=== PATIENT | male | born 1945 | race Caucasian/White ===

== ENCOUNTER 2023-01-06 07:51 | Outpatient (RCR) | payer MEDICARE, BC, SELFPAY ==
--- NOTE | 2023-01-06 08:49 | PT.OPEX ---
[facility] Eval PT [facility] Out[facility] Eval Start: 01/06/23 07:40 Freq: Status: Active Protocol: Document 01/06/23 07:41 KACY (Rec: 01/06/23 08:45 KACY [id number]) E-signed By Manuela [facility] Outpatient Evaluation Insurance Information Recert Due Date 04/07/23 Insurance Name Medicare B,Blue [employer] Medical Diagnosis M17.11 OA of R knee Z96.651 Presence of R artificial knee joint Treating Diagnosis M25.561 R knee pain M25.661 Stiffness of R knee Referring MD Lewis Subjective Subjective Pt presents pre-op only for RTKA on 01/20/[address] Lewis. Pt reports that knee pain started 6-7 years ago. WB activities aggravate pain. Pt takes Tylenol for pain management. This is his first joint replacement. Pt lives with spouse who is a RN. Lives in multilevel home, pt can stay in the lower level post- op if needed. 2 steps, pt will be installing B rails. R rail when going upstairs. Pt can get access to a 2WW and SPC. Pt has a tub shower with shower bench and grab bar. Pt also has a raised toilet seat. Pt will need a LTKA in the future. Pt will be doing OP PT at [facility]. Date of Surgery (If applicable) 01/20/23 Current Work Status Retired Preferred Name Ricardo Precautions Treatment Precautions/Contraindications PMHx: HTN, asthma Therapy Limitations/Systems Review Not Limited Objective Range of Motion R knee ROM = 1-126 L knee ROM = 4-127 Hamstring length = slightly limited B Strength Hip flexion L/R = 5/5 Hip abd L/R = 5/5 Hip add L/R = 5/5 Quads L/R = 5/5 Hamstrings L/R = 5/5 Balance & Gait R knee varus, antalgic gait pattern, no AD Assessment Assessment/Impression Pt presents pre-op only for RTKA on 01/20/[address] Lewis. PMHx: HTN, asthma. Pt with R knee pain for the last 6-7 years. WB activities inc pain, take Tylenol for pain management. Pt lives in multilevel home with spouse, 2 steps to enter. PLOF: IND no AD. Will obtain 2WW and SPC. Pt demonstrates varus R knee positioning with antalgic gait pattern and dec R knee extension. Pt was educated on POC, HEP, post-op precautions, fall prevention, equipment needs, pain/swelling management, and stair training . Pt will be doing OP PT at [facility] post-op. Primary Functional Limitations R knee pain with functional activities Dec R knee ROM Gait deficits Plan of Care Rehabilitation Potential Excellent Physical Therapy Goals In one session: 1. Pt will be IND with HEP in order to perform at home post- op IND. 2. Pt will navigate 4 steps with B rails using proper step sequencing in order to enter/ exit home safely post-op. 3. Pt will provide verbal understanding of post-op precautions in order to reduce risk of post-op complications . Coordination/Communication With Referral Source Treatment Plan/Direct Interventions Self-Care/Home Management, Therapeutic Exercises Frequency/Duration 1x only Patient Will Be Discharged From Therapy Completion of LTG(s), Independent w/HEP Evaluation Billing Untimed Code Treatment Minutes 12 PT Eval No Charge No Complexity Low Certification Information Initial Certification Date 01/06/23 Ending Certification Date 04/07/23 Provider Signature Shows Agreement With POC & Medical Necessity Physician Comment/Change : Physician NPI Number #
== END 2023-05-06 23:59 | disposition home or self-care (01) ==
PROVIDERS: PCP Internal Medicine; Visit Provider Orthopaedic Surgery
DX: M17.11 Unilateral primary osteoarthritis, right knee (principal); Z96.651 Presence of right artificial knee joint; M25.561 Pain in right knee; M25.661 Stiffness of right knee, not elsewhere classified; Z51.89 Encounter for other specified aftercare
CPT/HCPCS: 97110; 97161; 97535

== ENCOUNTER 2023-01-20 08:23 | Day surgery (SDC) | payer MEDICARE, BC, SELFPAY ==
[2023-01-20] VITALS (23 sets, daily range): BP systolic 111–152; BP diastolic 77–96; PULSE 58–74; RESP 11–20; TEMP 34.8–36.9; O2SAT 90–97; BMI 28.1
[2023-01-20] MEDS: ACETAMINOPHEN 500 MG TABLET 1000 MG PO ×3 (09:00→20:57)
[2023-01-20] MEDS: SODIUM CHLORIDE 0.9 % (FLUSH) 10 ML SYRINGE IVF (09:00)
[2023-01-20] MEDS: CELECOXIB 200 MG CAPSULE PO (09:00)
[2023-01-20] MEDS: OXYCODONE (CR) 10 MG TAB.ER.12H PO (09:00)
[2023-01-20] MEDS: LACTATED RINGERS 1000 ML 1,000 ML 100 ML IV ×2 (09:00→11:33)
[2023-01-20] MEDS: MIDAZOLAM HCL 1 MG/ML inj IVP (09:23)
[2023-01-20] MEDS: fentaNYL 100 MCG/2 ML inj IVP (09:23)
--- NOTE | 2023-01-20 09:31 | SUR.PREOP ---
TIME?OUT:?921 PT/RN/MDA?VERIFICATION?OF?SURGICAL?SITE,?PROCEDURE,?AND?CONSENT OBTAINED?PRIOR?TO?INVASIVE?PROCEDURE.
--- NOTE | 2023-01-20 09:33 | P.NB_ITS ---
Nerve Block Nerve Block Time Seen by Provider: 08:25 Date Seen: 01/20/23 Type of block requested by surgeon for post-operative analgesia: adductor canal Side: right Time out performed: Yes Verification of patient name: Yes Verification of date of : Yes Site marking: site marked Name of person performing procedure: Balwinder Continuous monitoring Was continuous monitoring of O2 sat, B/P, acquisition specialist, recorded every 15 minutes?: Yes Procedure Checklist: sterile prep, needles and gloves Ultrasound guided. Images saved: Yes Medications given in 5ml increments after negative aspiration: Ropivicaine %: 0.5 mL: 20 Needle gauge: 20 Decadron (mg): 10 Precedex (mcg): 25 Patient tolerated procedure well: Yes Additional comments: Needle noted adjacent to nerve Block Charges Block Charge (with Pro Fee): Femoral Nerve Use of Ultrasound Machine for Block: Yes- US Guidance/pain block
--- NOTE | 2023-01-20 09:33 | W.ANESCHARGE ---
Anesthesia Charges Start Date/Time Anesthesia Start Date: 01/20/23 Anesthesia Start Time: 09:36 Stop Date/Time Anesthesia Stop Date: 01/20/23 Anesthesia Stop Time: 12:23 Summary Extremes of Age - Over 70 or under 1: MDA
--- NOTE | 2023-01-20 09:34 | W.PM.NB ---
Nerve Block Nerve Block Time Seen by Provider: 08:25 Date Seen: 01/20/23 Type of block requested by surgeon for post-operative analgesia: geniculars Side: right Time out performed: Yes Verification of patient name: Yes Verification of date of : Yes Site marking: site marked Name of person performing procedure: Balwinder Continuous monitoring Was continuous monitoring of O2 sat, B/P, alarm security or surveillance monitor, recorded every 15 minutes?: Yes Procedure Checklist: sterile prep, needles and gloves Medications given in 5ml increments after negative aspiration: Ropivicaine %: 0.5 mL: 9 Needle gauge: 25 Patient tolerated procedure well: Yes Block Charges Block Charge (with Pro Fee): Genicular Nerve Block Use of Ultrasound Machine for Block: No
[2023-01-20] MEDS: TRANEXAMIC ACID 100 MG/ML INJ 1000 MG IV (09:59)
[2023-01-20] MEDS: CEFAZOLIN 2 GM INJ IVP (09:59)
--- NOTE | 2023-01-20 11:31 | CRLHL7_ITS ---
For Patients: As a result of the Cures Act, medical imaging exams and procedure reports are released immediately into your electronic medical record. You may view this report before your referring provider. If you have questions, please contact your health care provider. Indication: POST OP TKA Technique: Two views right knee Findings/Impression: Hardware from a right total knee arthroplasty is in satisfactory position. Bone alignment is normal. No sign of acute fracture. Postop changes are within normal limits. Dictated by Jewel Brown MD @ 01/20/2023 1:49:28 PM (Electronically Signed)
--- NOTE | 2023-01-20 11:35 | P.ORPRC_ITS ---
Procedure Note Date of procedure: 01/20/23 Procedure: PREOPERATIVE DIAGNOSIS: Right knee osteoarthritis POSTOPERATIVE DIAGNOSIS: Right knee osteoarthritis NAME OF OPERATION: Right total knee arthroplasty SURGEON: Adama Lewis MD HAM BONER: Miranda Hernandez PA-C ANESTHESIA: Spinal ESTIMATED BLOOD LOSS: 0 mL COMPLICATIONS: None SPECIMENS: None DRAINS: None PREOPERATIVE ANTIBIOTICS: Ancef 2 grams IMPLANTS: 1. J&J Attune # 7 posterior stabilized femur 2. #6 fixed-bearing tibia 3. # 7 posterior stabilized, 5 mm fixed-bearing polyethylene 4. 41 patella INDICATIONS: The patient is a 77-year-old with a longstanding history of severe, unrelenting right knee pain secondary to end-stage (grade IV) right knee osteoarthritis. Despite appropriate nonoperative management, including activity modification, anti-inflammatories, ylqg-zge-hlhpuca pain medication, bracing, physical therapy, and injections they continue to have pain and disability. Operative intervention was offered. The risks, benefits and expected outcomes were discussed in detail. These included but were not limited to: Infection, bleeding, injury to blood vessel or nerve, venous thromboembolism. All questions were answered to their satisfaction. Use of an statistical assistant was necessary throughout the case for patient positioning and safety, soft tissue retraction, and closure. PROCEDURE: Spinal anesthesia was administered. The patient was placed supine on the operating table. The statistical assistant made sure the patient was positioned appropriately. The lower extremity was prepped and draped in the usual sterile fashion. The limb was exsanguinated with the Charly bandage. The pneumatic t ourniquet was inflated to 300 mmHg. A standard anterior incision was made with the knee in flexion. Subcutaneous dissection was sharply taken through fascial layer #1. Full-thickness medial and lateral flaps were elevated. The statistical assistant retracted the soft tissues and protected them throughout the case. A standard medial parapatellar approach was made. The patella was everted. The infrapatellar fat pad was preserved. The menisci and cruciate ligaments were sharply d?brided. Marginal osteophytes were d?brided with the rongeur. The drill was used to penetrate the femoral canal. The canal was aspirated and irrigated with pulse lavage. The intramedullary femoral guide was placed for a 5-degree valgus cut, removing 12 mm off the distal femur. The saw was used to make the cut. Whitesides line and the trans epicondylar axis were marked. The femoral sizing guide was pinned onto the distal femur. Three degrees of external rotation nicely parallels the transepicondylar axis. Pins were placed for posterior referencing. The four-in-one cutting guide was pinned onto the distal femur. The anterior, posterior, and chamfer cuts were made. The statistical assistant protected the collateral ligaments. The box cutting guide was pinned. The box cuts were made. The boxed trial was placed and was an excellent fit. Drill holes for the lugs were made. Attention was then turned to the proximal tibia. The extramedullary tibial guide was placed for a neutral varus/valgus cut with 5 degrees of posterior slope, removing 2 mm based off the medial tibial surface. The statistical assistant protected the collateral ligaments and the neurovascular bundle. The saw was used to make the cut. Trial components were placed. The knee was nicely balanced in both flexion and extension. The trial components were removed. The tray was placed in appropriate rotation, parallel to our tibial cutting pins. It was pinned by the statistical assistant and the drill and the punch were used. The tray was removed. The punch was used again. We placed a bone plug in the femoral canal. Attention was then turned to the patella. [place] patellar thickness was 25.5 mm. The lobster claw resection guide was used with the 9.5 mm beatriz. The saw was used to make the cut. Drill holes were made by the statistical assistant. The trial was placed and was an excellent fit. Cancellous surfaces were irrigated with pulse lavage and thoroughly dried by the statistical assistant. We cemented the tibial component, then the femoral component. We impacted the 5 mm polyethylene onto the tibial tray. The knee was brought into full extension. We then cemented the patellar component. Excessive cement was removed. The cement was allowed to harden. When bringing the knee out to full extension and compressing the femoral component onto the distal femur valgus stress was placed. A small pop was felt. Once the cement was hardened we examined the MCL. The knee is stable at 0?, there is grade 1 instability at 30?. The far anterior aspect of the deep MCL was partially torn. Therefore, with the knee in flexion and the figure 4 position we put several #2 FiberWire sutures in the deep MCL. This was then imbricated with a 2-0 Stratafix in a running fashion. The knee is now completely stable at both 0 and 30?. The repair is isometric in a full range of motion. The patella tracks centrally. The statistical assistant did a three minute dilute Betadine solution soak. The statistical assistant irrigated the wound with 3 liters of normal saline via pulse lavage. The statistical assistant reapproximated the extensor mechanism with #1 Vicryl in an interrupted yhublz-ba-yqjjm fashion. The statistical assistant then ran the extensor mechanism with a #1 PDO Stratafix. The statistical assistant closed the subcutaneous tissues with a 3-0 Stratafix and the skin with a running 3-0 Stratafix in a subcuticular fashion. Glue was used to seal the skin. The statistical assistant placed a dry dressing, JACKI stocking, and Polar Care. Sponge and needle counts were correct x2. The patient tolerated the procedure well. There were no apparent complications. They were carefully transferred to the hospital bed and taken to the postanesthesia care unit in satisfactory condition. PLAN: The patient will be mobilized with physical therapy. Aspirin will be used for DVT prophylaxis. They will be discharged to home once medically appropriate.
--- NOTE | 2023-01-20 12:24 | W.ANESCHARGE ---
Anesthesia Charges Start Date/Time Anesthesia Start Date: 01/20/23 Anesthesia Start Time: 09:36 Stop Date/Time Anesthesia Stop Date: 01/20/23 Anesthesia Stop Time: 12:23 Summary Extremes of Age - Over 70 or under 1: EXPERIMENTAL BOX TESTER
[2023-01-20] MEDS: LACTATED RINGERS 1000 ML 1,000 ML 75 ML IV (13:05)
--- NOTE | 2023-01-20 13:24 | PM.IMPN1 ---
Progress Note: A&P Assessment and plan (1) Bilateral primary osteoarthritis of knee: Problem details: End-stage bilateral knee medial and patellofemoral compartments 01/20: s/p right total knee; pain control; diet; dvt ppx per surgery service Status: Acute (2) Overactive bladder: Problem details: continue oxybutynin Status: Acute (3) GERRY (obstructive sleep apnea): Problem details: does not use cpap Status: Acute (4) Hypertension: Problem details: hold norvasc for now Status: Acute (5) Asthma: Problem details: not on inhalers; mild intermittent Status: Acute Subjective Date Seen: 01/20/23 Interval history: POSTOPERATIVE DIAGNOSIS: Right knee osteoarthritis NAME OF OPERATION: Right total knee arthroplasty ANESTHESIA: Spinal ESTIMATED BLOOD LOSS: 0 mL The patient is stable following surgery he denies chest pain, sob, nausea, vomiting has had ice chips pain is controlled Exam Narrative: Exam Narrative: Gen: no acute dist ress HEENT: NCAT E SHANNAN mmm Neck: Supp le CV: RRR normal s1 s2 Lungs: CTAB Abd: Soft,nt, nd N euro: Alert, orien preet, CN grossly in tact; nonfocal scr eening?exam Psych: appropriate affec t MSK: age appropr iate muscle mass S kin; Warm, dry no rash on face Const: Vital Signs, click to edit/add: Vital Signs - 24 hr 01/20/23 08:59 01/20/23 09:23 01/20/23 09:30 Temperature 98.4 F Pulse Rate 73 70 66 Pulse Rate [Left P ulse Oximeter] Respiratory Rate 16 16 16 Blood Pressure 152/93 H 142/90 H 120/83 Blood Pressure [Ri ght Arm] Pulse Oximetry 97 97 96 Oxygen Delivery Me thod Room Air Nasal Cannula Nasal Cannula Oxygen Flow Rate 2 2 01/20/23 12:20 01/20/23 12:25 01/20/23 12:30 Temperature 97.0 F L Pulse Rate 65 60 63 Pulse Rate [Left P ulse Oximeter] Respiratory Rate 11 L 14 14 Blood Pressure 119/88 117/85 116/82 Blood Pressure [Ri ght Arm] Pulse Oximetry 92 95 94 Oxygen Delivery Me thod Nasal Cannula Oxygen Flow Rate 4 01/20/23 12:35 01/20/23 12:40 01/20/23 12:45 Temperature Pulse Rate 63 61 58 L Pulse Rate [Left P ulse Oximeter] Respiratory Rate 12 16 15 Blood Pressure 113/82 121/87 117/83 Blood Pressure [Ri ght Arm] Pulse Oximetry 92 95 94 Oxygen Delivery Me thod Room Air Oxygen Flow Rate 01/20/23 12:50 01/20/23 13:02 Temperature 96.9 F L 94.6 F L Pulse Rate 59 L Pulse Rate [Left P ulse Oximeter] 63 Respiratory Rate 16 14 Blood Pressure 118/86 Blood Pressure [Ri ght Arm] 111/80 Pulse Oximetry 93 91 Oxygen Delivery Me thod Room Air Oxygen Flow Rate
[2023-01-20] MEDS: HYDROmorphone 0.5 mg/0.5 ml inj IVP (13:55)
[2023-01-20] MEDS: oxyBUTYnin chloride 5 MG TAB.ER.24 15 MG PO (14:42)
[2023-01-20] MEDS: OXYCODONE 5 MG TABLET PO ×2 (15:21→20:58)
--- NOTE | 2023-01-20 15:32 | PC.NURSE ---
PATIENT IS ALERT & ORIENTED X 4. DENIES CP AND N/V WHEN ASKED. PAIN TO R KNEE HAS BEEN 4-5/10 WITH PRN IV DILAUDID, CRYO CUFF AND SCHEDULED TYLENOL BEING INEFFECTIVE FOR PAIN CONTROL. PRN OXYCODONE GIVEN WITH RESULTS PENDING. LUNG SOUNDS CLEAR TO ALL LOBES BILATERALLY AND BOWEL SOUNDS ARE ACTIVE X 4 WITH LAST BM OF 01/20/23 PER PATIENT REPORT. PATIENT HAS NOT YET VOIDED THOUGH HAS URINAL WITHIN REACH. HE HAS BEEN TOLERATING ICE CHIPS, PUDDING AND OATMEAL WITH FLUIDS ALSO ENCOURAGED PO. LR RUNNING AT 75 ML/HR PER ORDER. PATIENT TRANSFERRED FROM BED TO RECLINER WITH PT AND TOLERATED WELL. JACKI SOCKS AND PLEXI PULSES WORN BILATERALLY. CMS TO RLE NOTED TO BE INTACT WITH <3 SECOND CAPILLARY REFILL. DRESSING TO ANTERIOR R KNEE SURGICAL INCISION NOTED TO BE CLEAN, DRY AND INTACT.
[2023-01-20] MEDS: CEFAZOLIN 2 GM in 0.9 % SODIUM CHLORIDE Mini-bag 100 ML IVPB ×2 (15:55→23:17)
--- NOTE | 2023-01-20 19:16 | PC.NURSE ---
Nursing Care Hours: [id number] Pt this shift calm and cooperative, alert and oriented. Pain decreased from 5/10 to 2/10 using oral pain relief per eMAR. VSS, ate 100% meal, no c/o nausea. Pedal pulses present, bandage CDI, cryocuff on.
[2023-01-20] MEDS: SENNOSIDES 1 TAB TABLET 2 TAB PO (20:57)
[2023-01-20] MEDS: ASPIRIN 81 MG TABLET EC PO (20:58)
[2023-01-21 03:00] VITALS: BP 130/84; PULSE 74; RESP 18; TEMP 36.6; O2SAT 95
[2023-01-21] MEDS: OXYCODONE 5 MG TABLET PO ×2 (03:05→08:42)
[2023-01-21] MEDS: ACETAMINOPHEN 500 MG TABLET 1000 MG PO ×2 (03:05→10:44)
--- NOTE | 2023-01-21 05:46 | PC.NURSE ---
Shift note -: Pt is pleasant and cooperative, A&O. Pain rated 0-1/10, PRN and scheduled pain medications given with pt reporting adequate pain relief. Surgical dressing C/D/I, CMS intact, cryocuff on continuously. Pt up SBA with a walker, moving well. Denies SOB, CP, and N/V. VSS on RA. Pt plans to d/c home with today.
[2023-01-21 06:58] LABS: Hematocrit 39.3 % (37.0-53.0); Immature Granulocytes Pct Auto 0.2 %; Lymphocytes Percent Auto 8.2 % (20-44); Mean Corpuscular HGB Conc 36 gm/dL (32-36); Mean Corpuscular Hemoglobin 32 pg (26-34); Mean Corpuscular Volume 91 fL (80-100); Monocytes Percent Auto 5.6 % (0.0-11.0); Platelet Count* 185 K/uL (140-440); RDW Coefficient of Variation % 12.9 % (11.5-15.5); Red Blood Count 4.32 m/uL (4.30-5.90); White Blood Count* 11.77 K/uL (4.50-11.00)
[2023-01-21 07:00] VITALS: BP 122/78; PULSE 69; RESP 16; TEMP 36.6; O2SAT 93
[2023-01-21 07:04] LABS: Slide Review Reflex No
[2023-01-21 07:06] LABS: Potassium* 3.6 mmol/L (3.6-5.1); Sodium* 138 mmol/L (135-149)
[2023-01-21 07:09] LABS: Blood Urea Nitrogen* 20 mg/dL (7-30); Creatinine* 0.8 mg/dL (0.5-1.5); Est. Creatinine Clearance* 62.84; Estimated Glomerular Filt Rate 92 ml/min
--- NOTE | 2023-01-21 08:08 | PM.ORPN ---
Subjective Subjective Time Seen by Provider: 07:20 Date Seen: 01/21/23 Principal diagnosis: Status post right knee replacement Interval history: Ricardo is comfortable this morning. He is in his recliner. He is having breakfast. He denies nausea or vomiting, chest pain, shortness of breath. He plans to discharge today to home with his . Ortho Exam Narrative Exam Narrative: Alert and oriented x3. Patient is in no acute distress. Converses without labored breathing. Hearing is grossly intact. Ambulates with a walker. Examination of the right knee shows the dressing is intact. Mild soft tissue edema. Mild effusion. No erythema or sign of infection. CMS intact right lower extremity. Quad strength 5/5. Bilateral calves are soft and nontender. He is able to straight leg raise. Const Vital Signs, click to edit/add: Vital Signs - 24 hr 01/20/23 08:59 01/20/23 09:23 01/20/23 09:30 Temperature 98.4 F Pulse Rate 73 70 66 Pulse Rate [Left Pulse Oximeter] Respiratory Rate 16 16 16 Blood Pressure 152/93 H 142/90 H 120/83 Blood Pressure [Right Arm] Pulse Oximetry 97 97 96 Oxygen Delivery Method Room Air Nasal Cannula Nasal Cannula Oxygen Flow Rate 2 2 01/20/23 12:20 01/20/23 12:25 01/20/23 12:30 Temperature 97.0 F L Pulse Rate 65 60 63 Pulse Rate [Left Pulse Oximeter] Respiratory Rate 11 L 14 14 Blood Pressure 119/88 117/85 116/82 Blood Pressure [Right Arm] Pulse Oximetry 92 95 94 Oxygen Delivery Method Nasal Cannula Oxygen Flow Rate 4 01/20/23 12:35 01/20/23 12:40 01/20/23 12:45 Temperature Pulse Rate 63 61 58 L Pulse Rate [Left Pulse Oximeter] Respiratory Rate 12 16 15 Blood Pressure 113/82 121/87 117/83 Blood Pressure [Right Arm] Pulse Oximetry 92 95 94 Oxygen Delivery Method Room Air Oxygen Flow Rate 01/20/23 12:50 01/20/23 13:02 01/20/23 13:15 Temperature 96.9 F L 94.6 F L 96.2 F L Pulse Rate 59 L Pulse Rate [Left Pulse Oximeter] 63 63 Respiratory Rate 16 14 14 Blood Pressure 118/86 Blood Pressure [Right Arm] 111/80 119/81 Pulse Oximetry 93 91 93 Oxygen Delivery Method Room Air Room Air Oxygen Flow Rate 01/20/23 13:30 01/20/23 13:31 01/20/23 13:45 Temperature 96.0 F L 96.2 F L 96.0 F L Pulse Rate Pulse Rate [Left Pulse Oximeter] 68 70 68 Respiratory Rate 14 14 16 Blood Pressure Blood Pressure [Right Arm] 128/87 128/87 130/88 Pulse Oximetry 90 90 95 Oxygen Delivery Method Room Air Room Air Room Air Oxygen Flow Rate 01/20/23 14:00 01/20/23 14:30 01/20/23 15:00 Temperature 96.2 F L 95.9 F L 95.8 F L Pulse Rate Pulse Rate [Left Pulse Oximeter] 68 68 61 Respiratory Rate 16 14 14 Blood Pressure Blood Pressure [Right Arm] 134/95 H 115/78 132/86 Pulse Oximetry 93 92 Oxygen Delivery Method Room Air Room Air Room Air Oxygen Flow Rate 01/20/23 15:00 01/20/23 16:00 01/20/23 17:00 Temperature 96.9 F L 97.1 F L Pulse Rate Pulse Rate [Left Pulse Oximeter] 63 69 Respiratory Rate 18 18 Blood Pressure Blood Pressure [Right Arm] 123/86 133/96 H Pulse Oximetry 94 97 94 Oxygen Delivery Method Room Air Room Air Oxygen Flow Rate 01/20/23 18:00 01/20/23 19:00 01/20/23 23:00 Temperature 97.5 F L 98 F Pulse Rate Pulse Rate [Left Pulse Oximeter] 72 74 Respiratory Rate 16 18 Blood Pressure Blood Pressure [Right Arm] 115/77 122/86 Pulse Oximetry 94 95 94 Oxygen Delivery Method Room Air Room Air Oxygen Flow Rate 01/20/23 23:00 01/21/23 03:00 Temperature 98.1 F 98 F Pulse Rate Pulse Rate [Left Pulse Oximeter] 74 Respiratory Rate 20 18 Blood Pressure Blood Pressure [Right Arm] 141/94 H 130/84 Pulse Oximetry 96 95 Oxygen Delivery Method Room Air Room Air Oxygen Flow Rate Assessment and Plan Assessment and plan (1) Status post total right knee replacement: Problem details: 01/20/2023, Dr. Lewis Status: Acute Assessment and Plan: Ricardo is comfortable. We discussed that his pain will get significantly worse once the block wears off. Plan for discharge is today to home if they meet discharge criteria. DVT prophylaxis includes aspirin 81 mg twice daily x1 month, Aleksandr stockings x1 month may remove for 1 hr per day, frequent ambulation Remove dressing in 1 week. Observe wound and phone Orthopedics with any questions or concerns Return to clinic in 1 week for a wound check Return to clinic in 6 weeks with surgeon Minimize narcotic use. Wean off and discontinue soon as possible. Activities as tolerated. No strenuous activity. Outpatient physical therapy as scheduled. Ice and elevate the operative extremity. No restriction on ice.
[2023-01-21] MEDS: ASPIRIN 81 MG TABLET EC PO (08:42)
[2023-01-21] MEDS: oxyBUTYnin chloride 5 MG TAB.ER.24 15 MG PO (08:42)
[2023-01-21] MEDS: SENNOSIDES 1 TAB TABLET 2 TAB PO (08:42)
--- NOTE | 2023-01-21 11:19 | PC.NURSE ---
Discharge: Pt friendly and cooperative, a/o and able to verbalize his needs. VS WNL and LS COA. Afebrile. Moves well with SBA. Surgical dressing, C,D,&I with cryocuff in place. Pt verbalized understanding of discharge instructions and follow up appointment. He was discharged to home via wheelchair in the care of his brother at 1111.
[2023-01-21 13:17] LABS: INR 1.08 (0.91-1.10); Prothrombin Time 14.6 Seconds
== END 2023-01-21 11:26 | disposition home or self-care (01) ==
LOC: OR 08:26 → MEDSURG 08:28
PROVIDERS: PCP Internal Medicine; Visit Provider Orthopaedic Surgery
PROC: (CPT 27447; principal; 2023-01-20 10:00)
DX: M17.11 Unilateral primary osteoarthritis, right knee (principal); G89.18 Other acute postprocedural pain; G47.33 Obstructive sleep apnea (adult) (pediatric); N32.81 Overactive bladder; I10 Essential (primary) hypertension; J45.20 Mild intermittent asthma, uncomplicated
CPT/HCPCS: 27447; 01402; 36415; 64447; 64454; 73560; 76942; 82565; 84132; 84295; 84520; 85025; 85610; 97110; 97116; 97161; 97165; 97535; 99100; A9270; C1776; J0690; J1100; J1170; J2250; J2405; J2704; J3010; J7120

== ENCOUNTER 2023-11-15 06:18 | Day surgery (SDC) | payer MEDICARE, BC, SELFPAY ==
[2023-11-15] VITALS (21 sets, daily range): BP systolic 113–149; BP diastolic 72–105; PULSE 70–92; RESP 16–75; TEMP 35.8–36.6; O2SAT 91–97; BMI 30.1
[2023-11-15] MEDS: OXYCODONE (CR) 10 MG TAB.ER.12H PO (07:13)
[2023-11-15] MEDS: SODIUM CHLORIDE 0.9 % (FLUSH) 10 ML SYRINGE IVF (07:13)
[2023-11-15] MEDS: LACTATED RINGERS 1000 ML 1,000 ML 100 ML IV ×2 (07:13→08:32)
[2023-11-15] MEDS: CELECOXIB 200 MG CAPSULE PO (07:13)
[2023-11-15] MEDS: ACETAMINOPHEN 500 MG TABLET 1000 MG PO ×3 (07:13→20:23)
[2023-11-15] MEDS: MIDAZOLAM HCL 1 MG/ML inj IVP (07:16)
[2023-11-15] MEDS: fentaNYL 100 MCG/2 ML inj IVP (07:16)
--- NOTE | 2023-11-15 07:18 | SUR.PREOP ---
TIME?OUT:?0715 PT/RN/[employer] ([employer])?VERIFICATION?OF?SURGICAL?SITE Left Knee,?PROCEDURE Nerve Block,?AND?CONSENT OBTAINED?PRIOR?TO?INVASIVE?PROCEDURE.
--- NOTE | 2023-11-15 07:30 | W.PM.NB ---
Nerve Block Nerve Block Time Seen by Provider: 07:10 Date Seen: 11/15/23 Type of block requested by surgeon for post-operative analgesia: geniculars and adductor canal Side: left Time out performed: Yes Verification of patient name: Yes Verification of date of : Yes Site marking: site marked Name of person performing procedure: Hal Carter CRNA Continuous monitoring Was continuous monitoring of O2 sat, B/P, monitor tech, recorded every 15 minutes?: Yes Procedure Checklist: sterile prep, needles and gloves Ultrasound guided. Images saved: Yes Medications given in 5ml increments after negative aspiration: Marcaine %: 0.5 mL: 30 Needle gauge: 20 Decadron (mg): 10 Precedex (mcg): 25 Patient tolerated procedure well: Yes Block Charges Block Charge (with Pro Fee): Femoral Nerve Use of Ultrasound Machine for Block: Yes- US Guidance/pain block
[2023-11-15] MEDS: CEFAZOLIN 2 GM INJ IVP (07:50)
[2023-11-15] MEDS: TRANEXAMIC ACID 100 MG/ML INJ 1000 MG IV (07:55)
--- NOTE | 2023-11-15 09:12 | CRLHL7_ITS ---
For Patients: As a result of the Cures Act, medical imaging exams and procedure reports are released immediately into your electronic medical record. You may view this report before your referring provider. If you have questions, please contact your health care provider. Indication: Postop TKA Technique: Two views left knee Findings/Impression: Hardware from a left total knee arthroplasty is in satisfactory position. Bone alignment is normal. No sign of acute fracture. Postop changes are within normal limits. Dictated by Jewel Brown MD @ 11/15/2023 10:21:28 AM (Electronically Signed)
--- NOTE | 2023-11-15 09:14 | PM.ORPRC ---
Procedure Note Date of procedure: 11/15/23 Procedure: PREOPERATIVE DIAGNOSIS: Left knee osteoarthritis POSTOPERATIVE DIAGNOSIS: Left knee osteoarthritis NAME OF OPERATION: Left total knee arthroplasty SURGEON: Adama Lewis MD METAL TANK BUILDER: Miranda Hernandez PA-C ANESTHESIA: Spinal ESTIMATED BLOOD LOSS: 0 mL COMPLICATIONS: None SPECIMENS: None DRAINS: None PREOPERATIVE ANTIBIOTICS: Ancef 2 grams IMPLANTS: 1. J&J Attune # 7 posterior stabilized femur 2. # 7 fixed-bearing tibia 3. # 7 posterior stabilized, 5 mm fixed-bearing polyethylene 4. 41 patella INDICATIONS: The patient is a 78-year-old with a longstanding history of severe, unrelenting left knee pain secondary to end-stage (grade IV) left knee osteoarthritis. Despite appropriate nonoperative management, including activity modification, anti-inflammatories, yfxa-con-mreomtb pain medication, bracing, physical therapy, and injections they continue to have pain and disability. Operative intervention was offered. The risks, benefits and expected outcomes were discussed in detail. These included but were not limited to: Infection, bleeding, injury to blood vessel or nerve, venous thromboembolism. All questions were answered to their satisfaction. Use of an fws faculty assistant was necessary throughout the case for patient positioning and safety, soft tissue retraction, and closure. PROCEDURE: Spinal anesthesia was administered. The patient was placed supine on the operating table. The fws faculty assistant made sure the patient was positioned appropriately. The lower extremity was prepped and draped in the usual sterile fashion. The limb was exsanguinated with the Charly bandage. The pneumatic tourniquet was inflated to 300 mmHg. A standard anterior incision was made with the knee in flexion. Subcutaneous dissection was sharply taken through fascial layer #1. Full-thickness medial and lateral flaps were elevated. The fws faculty assistant retracted the soft tissues and protected them throughout the case. A standard subvastus approach was made. The patella was subluxed. The infrapatellar fat pad was preserved. The menisci and cruciate ligaments were sharply d?brided. Marginal osteophytes were d?brided with the rongeur. The drill was used to penetrate the femoral canal. The canal was aspirated and irrigated with pulse lavage. The intramedullary femoral guide was placed for a 5-degree valgus cut, removing 12 mm off the distal femur. The saw was used to make the cut. Whitesides line and the trans epicondylar axis were marked. The femoral sizing guide was pinned onto the distal femur. Three degrees of external rotation nicely parallels the transepicondylar axis. Pins were placed for posterior referencing. The four-in-one cutting guide was pinned onto the distal femur. The anterior, posterior, and chamfer cuts were made. The fws faculty assistant protected the collateral ligaments. The box cutting guide was pinned. The box cuts were made. The boxed trial was placed and was an excellent fit. Drill holes for the lugs were made. Attention was then turned to the proximal tibia. The extramedullary tibial guide was placed for a neutral varus/valgus cut with 5 degrees of posterior slope, removing 2 mm based off the medial tibial surface. The fws faculty assistant protected the collateral ligaments and the neurovascular bundle. The saw was used to make the cut. Trial components were placed. The knee was nicely balanced in both flexion and extension. The trial components were removed. The tray was placed in appropriate rotation, parallel to our tibial cutting pins. It was pinned by the fws faculty assistant and the drill and the punch were used. The tray was removed. The punch was used again. We placed a bone plug in the femoral canal. Attention was then turned to the patella. [place] patellar thickness was 27 mm. The lobster claw resection guide was used with the 9.5 mm beatriz. The saw was used to make the cut. Drill holes were made by the fws faculty assistant. The trial was placed and was an excellent fit. Cancellous surfaces were irrigated with pulse lavage and thoroughly dried by the fws faculty assistant. We cemented the tibial component, then the femoral component. We impacted the 5 mm polyethylene onto the tibial tray. The knee was brought into full extension. We then cemented the patellar component. Excessive cement was removed. The cement was allowed to harden. The knee was taken through a range of motion and was found to be nicely balanced in both flexion and extension. The patella tracks centrally. The fws faculty assistant did a three minute dilute Betadine solution soak. The fws faculty assistant irrigated the wound with 3 liters of normal saline via pulse lavage. The fws faculty assistant reapproximated the extensor mechanism with #1 Vicryl in an interrupted [id number] fashion. The fws faculty assistant then ran the extensor mechanism with a #1 PDO Stratafix. The fws faculty assistant closed the subcutaneous tissues with a 3-0 Stratafix and the skin with a running 3-0 Stratafix in a subcuticular fashion. Glue was used to seal the skin. The fws faculty assistant placed a dry dressing. Sponge and needle counts were correct x2. The patient tolerated the procedure well. There were no apparent complications. They were carefully transferred to the hospital bed and taken to the postanesthesia care unit in satisfactory condition. PLAN: The patient will be mobilized with physical therapy. Aspirin will be used for DVT prophylaxis. They will be discharged to home once medically appropriate.
--- NOTE | 2023-11-15 10:07 | W.ANESCHARGE ---
Anesthesia Charges Start Date/Time Anesthesia Start Date: 11/15/23 Anesthesia Start Time: 07:39 Stop Date/Time Anesthesia Stop Date: 11/15/23 Anesthesia Stop Time: 10:07 Summary Extremes of Age - Over 70 or under 1: DIRECTOR [employer]
--- NOTE | 2023-11-15 10:17 | SUR.PHASEI ---
xray here for ap/lat left knee
[2023-11-15] MEDS: HYDROmorphone 0.5 mg/0.5 ml inj IVP (10:58)
[2023-11-15] MEDS: hydrOXYzine pamoate 25 MG CAPSULE PO (11:37)
[2023-11-15] MEDS: OXYCODONE 5 MG TABLET PO (12:44)
[2023-11-15] MEDS: CEFAZOLIN 2 GM in 0.9 % SODIUM CHLORIDE Mini-bag 100 ML IVPB ×2 (13:50→23:10)
--- NOTE | 2023-11-15 17:25 | P.IMCN_ITS ---
Date of Consult Patient: Tyrell Patient Consult date: 11/15/23 Requesting Physician: Orthopedics Primary Care Provider: Janet Grove MD Consult Narrative Narrative: Ricardo Gaspar is a 78 year old male seen in consultation for management of medical problems following left total knee arthroplasty. Consult requested by Dr. Lewis who performed surgery today. There were no operative complications. Postoperatively he is doing well. He is having some knee pain but less than he experienced after his previous knee surgery last year. No other health concerns today. Preop evaluation was unremarkable and there were no perioperative concerns. He had right total knee arthroplasty in January of 2023. He reports the did well after surgery except the 1st 2 weeks where he had a lot of pain. He has not had problems with anesthesia, bleeding or clotting. He has been diagnosed with sleep apnea in the past but did not tolerate CPAP and has not use it for a long time. Does report daytime sleepiness. Review of Systems Narrative: No recent symptoms of illness. No recent injury. No other medical concerns today. [facility] Medical History (Updated 11/15/23 @ 17:29 by Erwin Antunez MD) Polyp of colon ?K63.5 - Polyp of colon (ICD-10) Tinnitus of both ears ?H93.13 - Tinnitus, bilateral (ICD-10) Folliculitis ?L73.9 - Follicular disorder, unspecified (ICD-10) Hand dermatitis ?L30.9 - Dermatitis, unspecified (ICD-10) Left varicocele ?I86.1 - Scrotal varices (ICD-10) GERRY (obstructive sleep apnea) ?G47.33 - Obstructive sleep apnea (adult) (pediatric) (ICD-10) Bilateral knee pain ?M25.561 - Pain in right knee (ICD-10) ?M25.562 - Pain in left knee (ICD-10) Hypertension ?I10 - Essential (primary) hypertension (ICD-10) Asthma ?J45.909 - Unspecified asthma, uncomplicated (ICD-10) Surgical History (Updated 11/15/23 @ 17:31 by Erwin Antunez MD) Status post left knee replacement ?Z96.652 - Presence of left artificial knee joint (ICD-10) H/O vasectomy ?Z98.52 - Vasectomy status (ICD-10) History of tonsillectomy and adenoidectomy ?Z90.89 - Acquired absence of other organs (ICD-10) H/O cystoscopy ?Z98.890 - Other specified postprocedural states (ICD-10) H/O blepharoplasty ?Z98.890 - Other specified postprocedural states (ICD-10) Status post total right knee replacement (01/20/23) ?Z96.651 - Presence of right artificial knee joint (ICD-10) Social History (Updated 11/15/23 @ 17:30 by Erwin Antunez MD) Narrative: He lives between [facility]. He lives in a house with his . He did well after his right knee surgery January 2023. He has a few steps to get into his house. He spends most of his time and sleeps in the lower level where he has a bedroom and a bathroom. He does not smoke. What is your current living situation?: I presently have a place to live Problems where you live: no known problems In the past 12 months, utilities in danger of being shut off: no In past 12 months, lack of transportation kept you from medical appts, meetings, work, or getting things needed for daily living: no In the past 12 mos, have been you worried that your food would run out before you had money to buy more?: never true In the past 12 mos, the food you bought just didn't last and you didn't have money to buy more?: never true Highest level of school completed/degree received: high school graduate Smoking Status: Never smoker Do you use any of these nicotine containing products: None Second hand tobacco smoke exposure: No How often do you have a drink containing alcohol: never How often do you have six or more drinks on one occasion: Never AUDIT-C Alcohol total score: 0 Non-prescribed substance use: denies use Caffeine: No How often does anyone, including family, friends and others, physically hurt you : never How often does anyone, including family, friends and others, insult or talk down to you: never How often does anyone, including family, friends and others, threaten you with harm: never How often does anyone, including family, friends and others, scream or curse at you: never service: Yes Meds Home Medications and Allergies Home Medications ?Medication ?Instructions ?Recorded ?Confirmed ?Type amlodipine 10 mg tablet 10 mg PO DAILY 05/12/22 11/15/23 History aspirin 81 mg tablet,delayed 81 mg PO DAILY 07/25/23 11/15/23 History release hydrocortisone 2.5 % topical cream 1 applic topical BID PRN 11/15/23 11/15/23 History ketoconazole 2 % shampoo 1 applic topical DAILY PRN 11/15/23 11/15/23 History triamcinolone acetonide 0.5 % 1 applic topical BID PRN 11/15/23 11/15/23 History topical ointment Allergies Allergy/AdvReac Type Severity Reaction Status Date / Time clarithromycin Allergy Verified 11/15/23 06:46 doxazosin Allergy Verified 11/15/23 06:46 lisinopril Allergy Verified 11/15/23 06:46 Exam Narrative: Exam Narrative: He is alert and appears in no distress. Oropharynx with small airway and prominent tongue. Neck is supple without mass or adenopathy. Respirations are clear to auscultation. Cardiovascular: S1, S2, regular rate and rhythm. No murmur gallop or rub. Abdomen is soft without tenderness or mass. Extremities with intact pulses and sensation. He moves both feet and ankles well. No edema. Const: Vital Signs, click to edit/add: Vital Signs - 24 hr 11/15/23 06:50 11/15/23 07:15 11/15/23 07:20 Temperature 97.7 F Pulse Rate 70 70 74 Respiratory Rate 16 75 H 75 H Blood Pressure 149/105 H 148/98 H 128/86 Pulse Oximetry 96 97 97 Oxygen Delivery Me thod Room Air Nasal Cannula Nasal Cannula Oxygen Flow Rate 2 2 11/15/23 10:01 11/15/23 10:15 11/15/23 10:20 Temperature Pulse Rate 83 82 80 Respiratory Rate 16 16 16 Blood Pressure 124/89 122/86 127/88 Pulse Oximetry 93 93 93 Oxygen Delivery Me thod Room Air Room Air Room Air Oxygen Flow Rate 11/15/23 10:25 11/15/23 10:30 11/15/23 10:32 Temperature 97.4 F L 96.5 F L Pulse Rate 78 78 79 Respiratory Rate 16 16 18 Blood Pressure 115/88 137/89 129/95 H Pulse Oximetry 94 94 92 Oxygen Delivery Me thod Room Air Room Air Room Air Oxygen Flow Rate 11/15/23 11:00 11/15/23 11:15 11/15/23 11:30 Temperature 96.7 F L 96.7 F L 96.7 F L Pulse Rate 82 86 84 Respiratory Rate 18 18 20 Blood Pressure 134/90 H 142/100 H 143/96 H Pulse Oximetry 93 94 93 Oxygen Delivery Me thod Room Air Room Air Room Air Oxygen Flow Rate 11/15/23 11:45 11/15/23 12:00 11/15/23 12:30 Temperature 96.7 F L 96.7 F L 96.7 F L Pulse Rate 84 78 88 Respiratory Rate 20 20 20 Blood Pressure 134/93 H 126/97 H 134/95 H Pulse Oximetry 94 93 93 Oxygen Delivery Me thod Room Air Room Air Room Air Oxygen Flow Rate 11/15/23 13:00 11/15/23 14:00 11/15/23 15:00 Temperature 96.7 F L 96.7 F L Pulse Rate 86 83 Respiratory Rate 16 18 18 Blood Pressure 125/87 128/91 H Pulse Oximetry 94 91 Oxygen Delivery Me thod Room Air Room Air Oxygen Flow Rate 11/15/23 15:00 11/15/23 15:00 11/15/23 16:00 Temperature 97.2 F L 97.5 F L Pulse Rate 86 92 Respiratory Rate 18 18 18 Blood Pressure 121/92 H 113/72 Pulse Oximetry 94 94 94 Oxygen Delivery Me thod Room Air Room Air Room Air Oxygen Flow Rate Documenting provider has reviewed patient's vital signs: yes Assessment and Plan Assessment and plan (1) Status post left knee replacement: Problem comment: 11/15/2023. Dr. Lewis. No complications. Status: Acute (2) GERRY (obstructive sleep apnea): Problem comment: does not use cpap . Recommend re-evaluation as an outpatient after surgery Status: Acute Plan Patient is admitted for postoperative care from knee surgery. Will monitor for sleep apnea and complications of sleep apnea. Manage pain. PT and OT to evaluate and treat. Anticipate discharge tomorrow if doing well. Recommend outpatient evaluation for sleep apnea after he recovers from this surgery. Total Time Spent Total Time Spent: 40 minutes
[2023-11-15] MEDS: ASPIRIN 81 MG TABLET EC PO (20:23)
[2023-11-15] MEDS: SENNOSIDES 1 TAB TABLET 2 TAB PO (20:23)
[2023-11-16] MEDS: ACETAMINOPHEN 500 MG TABLET 1000 MG PO ×2 (01:34→07:23)
[2023-11-16 01:36] VITALS: BP 127/89; PULSE 77; RESP 16; TEMP 36.7; O2SAT 97
[2023-11-16 06:24] LABS: Hemoglobin* 13.2 gm/dL (13.5-17.5); Immature Granulocytes Pct Auto 0.2 %; Lymphocytes Percent Auto 7.7 % (20-44); Mean Corpuscular HGB Conc 35 gm/dL (32-36); Mean Corpuscular Hemoglobin 32 pg (26-34); Mean Corpuscular Volume 93 fL (80-100); Monocytes Percent Auto 5.5 % (0.0-11.0); Neutrophils Percent Auto 86.6 % (42.0-72.0); Platelet Count* 185 K/uL (140-440); Red Blood Count 4.08 m/uL (4.30-5.90); White Blood Count* 14.62 K/uL (4.50-11.00)
[2023-11-16 06:26] LABS: Slide Review Reflex No
[2023-11-16 06:37] LABS: Sodium* 137 mmol/L (135-149)
[2023-11-16 06:38] LABS: Potassium* 3.8 mmol/L (3.6-5.1)
[2023-11-16 06:41] LABS: Blood Urea Nitrogen* 20 mg/dL (7-30); Est. Creatinine Clearance* 59.85; Estimated Glomerular Filt Rate 78 ml/min
--- NOTE | 2023-11-16 06:49 | PC.NURSE ---
Pt alert and oriented x3. Afebrile. Pt rates pain 0-2/10 pain in left knee, managed with cold pack and scheduled Tylenol. Pt's left knee dressing is CDI. Pt is up SBA with walker and gait belt, voiding and tolerating a regular diet. ?
[2023-11-16 07:37] LABS: INR 1.08 (0.91-1.10); Prothrombin Time 14.7 Seconds
[2023-11-16 08:23] VITALS: BP 111/75; PULSE 82; RESP 18; TEMP 36.5; O2SAT 96
--- NOTE | 2023-11-16 08:24 | PM.ORPN ---
Subjective Subjective Time Seen by Provider: 07:15 Date Seen: 11/16/23 Principal diagnosis: Status post left knee replacement Interval history: Ricardo is comfortable this morning. He is having breakfast. He plans to discharge to home today. He is very happy with his function already. Ortho Exam Narrative Exam Narrative: Alert and oriented x3. Patient is in no acute distress. Converses without labored breathing. Hearing is grossly intact. Ambulates with a walker. Examination of the left lower extremity shows the dressing is intact. No erythema or warmth or sign of infection. Minimal effusion. Very minimal soft tissue edema. No ecchymosis. CMS intact left lower extremity. Bilateral calves are soft and nontender. He is able to straight leg raise. Good quad strength. Const Vital Signs, click to edit/add: Vital Signs - 24 hr 11/15/23 10:01 11/15/23 10:15 11/15/23 10:20 Temperature Pulse Rate 83 82 80 Pulse Rate [Pulse Oximeter] Respiratory Rate 16 16 16 Blood Pressure 124/89 122/86 127/88 Blood Pressure [Right Arm] Pulse Oximetry 93 93 93 Oxygen Delivery Method Room Air Room Air Room Air 11/15/23 10:25 11/15/23 10:30 11/15/23 10:32 Temperature 97.4 F L 96.5 F L Pulse Rate 78 78 79 Pulse Rate [Pulse Oximeter] Respiratory Rate 16 16 18 Blood Pressure 115/88 137/89 129/95 H Blood Pressure [Right Arm] Pulse Oximetry 94 94 92 Oxygen Delivery Method Room Air Room Air Room Air 11/15/23 11:00 11/15/23 11:15 11/15/23 11:30 Temperature 96.7 F L 96.7 F L 96.7 F L Pulse Rate 82 86 84 Pulse Rate [Pulse Oximeter] Respiratory Rate 18 18 20 Blood Pressure 134/90 H 142/100 H 143/96 H Blood Pressure [Right Arm] Pulse Oximetry 93 94 93 Oxygen Delivery Method Room Air Room Air Room Air 11/15/23 11:45 11/15/23 12:00 11/15/23 12:30 Temperature 96.7 F L 96.7 F L 96.7 F L Pulse Rate 84 78 88 Pulse Rate [Pulse Oximeter] Respiratory Rate 20 20 20 Blood Pressure 134/93 H 126/97 H 134/95 H Blood Pressure [Right Arm] Pulse Oximetry 94 93 93 Oxygen Delivery Method Room Air Room Air Room Air 11/15/23 13:00 11/15/23 14:00 11/15/23 15:00 Temperature 96.7 F L 96.7 F L Pulse Rate 86 83 Pulse Rate [Pulse Oximeter] Respiratory Rate 16 18 18 Blood Pressure 125/87 128/91 H Blood Pressure [Right Arm] Pulse Oximetry 94 91 Oxygen Delivery Method Room Air Room Air 11/15/23 15:00 11/15/23 15:00 11/15/23 16:00 Temperature 97.2 F L 97.5 F L Pulse Rate 86 92 Pulse Rate [Pulse Oximeter] Respiratory Rate 18 18 18 Blood Pressure 121/92 H 113/72 Blood Pressure [Right Arm] Pulse Oximetry 94 94 94 Oxygen Delivery Method Room Air Room Air Room Air 11/15/23 20:00 11/15/23 23:59 11/15/23 23:59 Temperature 97.3 F L 97.9 F Pulse Rate Pulse Rate [Pulse Oximeter] 88 80 Respiratory Rate 18 16 16 Blood Pressure Blood Pressure [Right Arm] 140/94 H 124/84 Pulse Oximetry 95 95 95 Oxygen Delivery Method Room Air Room Air 11/16/23 01:36 Temperature 98.0 F Pulse Rate Pulse Rate [Pulse Oximeter] 77 Respiratory Rate 16 Blood Pressure Blood Pressure [Right Arm] 127/89 Pulse Oximetry 97 Oxygen Delivery Method Room Air Assessment and Plan Assessment and plan (1) Status post left knee replacement: Problem details: 11/15/2023. Dr. Lewis. No complications. Status: Acute Assessment and Plan: Plan for discharge is today to home if they meet discharge criteria. DVT prophylaxis includes aspirin 81 mg twice daily x1 month, Compression stockings as needed for swelling. Frequent ambulation, every hour throughout the day. Remove dressing in 1 week. Observe wound and phone Orthopedics with any questions or concerns Return to clinic in 1 week for a wound check Return to clinic in 6 weeks with surgeon Minimize narcotic use. Wean off and discontinue soon as possible. Activities as tolerated. No strenuous activity. Outpatient physical therapy as scheduled. Ice and elevate the operative extremity. No restriction on ice.
[2023-11-16] MEDS: SENNOSIDES 1 TAB TABLET 2 TAB PO (08:26)
[2023-11-16] MEDS: AMLODIPINE 10 MG TABLET PO (08:26)
[2023-11-16] MEDS: ASPIRIN 81 MG TABLET EC PO (08:26)
[2023-11-16 08:30] VITALS: O2SAT 96
--- NOTE | 2023-11-16 11:41 | PC.NURSE ---
Discharge: The patient discharged home, he was wheeled off the unit. He was educated on the importance of using his walker, L knee dressing CDI, reports minimal pain that is controlled with scheduled Tylenol. All discharge instructions were reviewed and questions were answered. Gretchen LOPEZ, BSN
== END 2023-11-16 10:10 | disposition home or self-care (01) ==
LOC: OR 06:18 → MEDSURG 06:22
PROVIDERS: PCP Internal Medicine; Visit Provider Orthopaedic Surgery
PROC: (CPT 27447; principal; 2023-11-15 07:45)
DX: M17.12 Unilateral primary osteoarthritis, left knee (principal); G89.18 Other acute postprocedural pain; G47.33 Obstructive sleep apnea (adult) (pediatric); I10 Essential (primary) hypertension; J45.909 Unspecified asthma, uncomplicated; Z79.82 Long term (current) use of aspirin
CPT/HCPCS: 27447; 01402; 36415; 64447; 73560; 76942; 82565; 84132; 84295; 84520; 85025; 85610; 97110; 97116; 97161; 97165; 97530; 97535; 99100; A9270; C1776; J0665; J0690; J1100; J1170; J2250; J2405; J2704; J3010; J7120